=== PATIENT | male | born 1960 | race Caucasian/White ===

== ENCOUNTER 2017-04-26 13:14 | Inpatient (IN) ==
[2017-04-26] MEDS ORDERED: Ipratropium/Albuterol Neb 3 ML IH ONE (13:44)
--- NOTE | 2017-04-26 14:00 | Emergency Department Note ---
Disposition Clinical Impression: Acute urinary retention Congestive heart failure Qualifiers: Congestive heart failure type: unspecified Congestive heart failure chronicity : acute Qualified Code(s): I50.9 - Heart failure, unspecified Disposition: Admitted As Inpatient Condition: Fair Referrals: Marcelina Moseley MD [Primary Care Provider] - Forms: ED Satisfaction Letter Time of Disposition: 15:41 General Adult HPI - General Chief complaint: ED Shortness of Breath/Dyspnea Stated complaint: CHF Time Seen by Provider: 04/26/17 13:28 Source: patient, family Limitations: no limitations Nursing Notes Reviewed: Yes Vital Signs Reviewed: Yes - History of Present Illness HPI Narrative: History of present illness: 57-year-old male history of coronary artery disease with 4 stents. Signed out AMA yesterday from [facility] due to failed attempts at multiple insertions of Rogers catheter unsuccessfully. Patient does have an advanced BPH. He follows up with urology Dr. Colmenares here at [facility]. Patient was treated for pneumonia and CHF. Patient has been increasingly fatigued borderline lethargic and short of breath and listless. No fever or sputum. Denies chest pain. Comes in complaining of just feeling loss of energy and feeling like just urinate but cannot increased abdominal girth and swelling in his lower extremities. She denies headache photophobia neck stiffness skin rash contacts exotic food or recent travel Pain Scale: 0 - Related Data Home Medications Medication Instructions Recorded Confirmed Albuterol Sulfate [Proair Hfa] 2 puff IH DAILY PRN 11/29/16 11/29/16 Aspirin [Lo-Dose Aspirin EC] 81 mg PO DAILY 11/29/16 11/29/16 Atorvastatin [Lipitor] 40 mg PO HS 11/29/16 11/29/16 Carvedilol [Coreg] 6.25 mg PO BIDWM 11/29/16 11/29/16 Fluticasone Propionate Nasal 16 gm NS DAILY 11/29/16 11/29/16 [Flonase] Gabapentin [Gralise] 600 mg PO DAILY 11/29/16 11/29/16 Isosorbide MONOnitrate (24 HR) 60 mg PO DAILY 11/29/16 11/29/16 [Imdur] Lisinopril 2.5 mg PO DAILY 11/29/16 11/29/16 Loratadine [Allergy Relief] 10 mg PO DAILY 11/29/16 11/29/16 Mometasone/Formoterol [Dulera 100 13 gm IH BID 11/29/16 11/29/16 Mcg/5 Mcg Inhaler] Nitroglycerin [Nitrostat] 0.4 mg SL DAILY PRN 11/29/16 11/29/16 Omeprazole [PriLOSEC] 40 mg PO DAILY 11/29/16 11/29/16 OxyCODONE/APAP 10/325 [Percocet 1 each PO Q6HR PRN 11/29/16 11/29/16 10/325 MG] SitaGLIPtin [Januvia] 25 mg PO DAILY 11/29/16 11/29/16 Tamsulosin [Flomax] 0.4 mg PO DAILY 11/29/16 11/29/16 Tizanidine HCl [Zanaflex] 4 mg PO TID 11/29/16 11/29/16 Previous Rx's Medication Instructions Recorded levoFLOXacin [Levaquin] 500 mg PO DAILY #10 tablet 11/29/16 predniSONE [PredniSONE] 0 mg PO DAILY #11 tablet 11/29/16 Allergies Allergy/AdvReac Type Severity Reaction Status Date / Time No Known Allergies Allergy Verified 04/26/17 13:15 All systems ED: reviewed and negative except as stated. Constitutional: Reports: weakness Respiratory: Reports: cough, dyspnea Gastrointestinal: Reports: abdominal pain Past Medical History - Past Medical History Attestation: Yes The following information was validated with the patient. Source: patient Medical history: Reports: CHF, diabetes - Social History Smoking Status: Current every day smoker Smokeless Tobacco Status: No Alcohol use: Reports: occasionally Drug use: Reports: none Physical Exam - General Limitations: no limitations General appearance: alert, in no apparent distress - Head Head exam: atraumatic, normocephalic - Eye Eye exam: Present: normal appearance, PERRL - ENT ENT exam: normal exam, normal oropharynx - Neck Neck exam: Present: normal inspection, full ROM - Chest Chest inspection: Present: normal inspection, symmetric chest wall rise - Respiratory Respiratory exam: Present: prolonged expiratory phase, other (Bibasilar rales) - Cardiovascular Cardiovascular exam: Present: normal rhythm, tachycardia - Abdominal Exam Abdominal exam: Present: soft, Non-Tender, distention (Patient has increased abdominal girth likely secondary to edema/ no fluid wave) - Extremities Exam Extremities exam: Present: full ROM, pedal edema, other (2+ pitting edema to the proximal degroot). Absent: tenderness - Expanded Lower Extremity Exam Neurovascular/Tendon exam: Present: extremity cold to touch Gait: not tested/not observed - Back Exam Back exam: Present: normal inspection, full ROM - Neurological Exam Neurological exam: Present: oriented X3, CN II-XII intact, other (Patient is fatigued borderline somnolent) - Psychiatric Psychiatric exam: Present: normal affect, normal mood - Skin Skin exam: Present: warm, dry, intact, pallor Course - Reevaluation(s) Reevaluation #1: Patient left AMA bowel being treated for CHF exacerbation at an outside facility. Patient will get a bladder scan and then will have one attempt at a coude catheter Rogers catheter insertion. If that is unsuccessful we will consult urology Dr. Colmenares. Who knows the patient well. Plan is for catheter insertion administration of parenteral diuretics and admission to this facility which the patient and spouse present are both agreeable to. Providing 30 minutes of critical care services for this patient. Time: 14:36 Reevaluation #2: Patient and a bladder scan 379 mL, it was 250 yesterday. He is only gone to the bathroom very little. I told the patient and spouse present will have one attempt at a Coude catheter as well as unsuccessful we will consult Dr. Colmenares from urology to place a Rogers. Workup in progress Time: 14:47 Reevaluation #3: Attempted Rogers 1 with failure discussed the case with Dr. Colmenares neurologist facilities operations technician who agreed to come in and place a catheter. Patient and family of some form. Labs pending. Admission pending Time: 15:18 - Consultations Consultation #1: Work up is complete. Troponin within normal limits chest x-ray read by radiology is consistent for acute congestive heart failure. Dr. Colmenares has been consult for full catheter placement and will be arriving at the hospital shortly area discuss case with the hospitalist Dr. NOE, accepted patient for admission. Provided a total of 45 minutes of critical care services this patient Time: 15:40 Vital Signs Temperature 98.0 F 04/26/17 13:15 Pulse Rate 70 04/26/17 13:15 Respiratory Rate 15 04/26/17 13:15 Blood Pressure 163/89 04/26/17 13:15 O2 Sat by Pulse Oximetry 96 04/26/17 13:15 Temperature 98.0 F 04/26/17 13:15 Pulse Rate 70 04/26/17 13:15 Respiratory Rate 18 04/26/17 14:26 Blood Pressure 163/89 04/26/17 13:15 O2 Sat by Pulse Oximetry 86 04/26/17 14:26 Oxygen Delivery Oxygen Delivery Room Air Medical Decision Making - Lab Data Result diagrams: 04/26/17 14:08 04/26/17 14:08 Lab Results 04/26/17 04/26/17 04/26/17 Range/Units 14:08 14:08 14:08 WBC 15.9 H (4.3-11.1) K/mcL RBC 4.02 L (4.19-5.50) M/mcL Hgb 12.4 L (12.9-16.9) g/dL Hct 38.6 (37.5-50.1) % MCV 96.0 (83.0-100.0) fL MCH 30.8 (28.0-33.3) pg MCHC 32.1 (31.6-35.5) g/dL RDW 13.7 (11.5-14.5) % Plt Count 342 (140-400) K/mcL MPV 10.3 (9.4-12.4) fL Immature Gran % 1.3 (0-4) % Seg Neutrophils % 86.6 % Lymphocytes % 5.1 % Monocytes % 6.2 % Eosinophils % 0.6 % Basophils % 0.2 % Neutrophils # 13.8 H (1.6-8.9) K/mcL Lymphocytes # 0.8 (0.6-4.6) K/mcL Monocytes # 1.0 (0.0-1.3) K/mcL Eosinophils # 0.1 (0.0-0.6) K/mcL Basophils # 0.0 (0.0-0.2) K/mcL Immature Plt Fraction 2.4 (1.1-6.1) % Sodium 134 L (136-145) mEq/L Potassium 4.8 (3.5-5.1) mEq/L Chloride 104 (98-107) mEq/L Carbon Dioxide 21 L (23-29) mEq/L BUN 102 H (6-20) mg/dL Creatinine 4.13 H (0.70-1.30) mg/dL Est GFR ( Amer) 18 L (> 60) Est GFR (Non-Af Amer) 15 L (> 60) BUN/Creatinine Ratio 25 (6-26) Glucose 142 H (70-105) mg/dL Calculated Osmolality 312 H (280-300) Calcium 8.1 L (8.6-10.3) mg/dL Troponin I 0.03 (< 0.04) ng/mL
[2017-04-26 14:16] LABS: Basophils % 0.2 %; Eosinophils # 0.1 K/mcL (0.0-0.6); Eosinophils % 0.6 %; Hematocrit 38.6 % (37.5-50.1); Hemoglobin 12.4 g/dL (12.9-16.9); Immature Granulocytes % 1.3 % (0-4); Immature Platelets 2.4 % (1.1-6.1); Lymphocytes # 0.8 K/mcL (0.6-4.6); Lymphocytes % 5.1 %; Mean Corpuscular HGB Conc 32.1 g/dL (31.6-35.5); Mean Corpuscular Hemoglobin 30.8 pg (28.0-33.3); Mean Platelet Volume 10.3 fL (9.4-12.4); Monocytes % 6.2 %; Neutrophils # 13.8 K/mcL (1.6-8.9); Platelet Count 342 K/mcL (140-400); Red Blood Count 4.02 M/mcL (4.19-5.50); Red Cell Distribution Width 13.7 % (11.5-14.5); Segmented Neutrophils % 86.6 %
[2017-04-26 14:44] LABS: Calcium 8.1 mg/dL (8.6-10.3); Potassium 4.8 mEq/L (3.5-5.1)
[2017-04-26] MEDS ORDERED: Nitroglycerin 0.4 MG TAB.SUBL SL STA (15:04)
--- NOTE | 2017-04-26 17:28 | Urology Procedure Note ---
Date of Encounter: 04/26/17 Time of Encounter: 14:00 Procedures:Urology - Catheter Insertion (Urinary) Prophylactic antibiotics given: No Bladder Scan/Ultrasound used before catheterization: Yes (350) Estimated amount of urin (mLs): 800 Preparation: Povidone-Iodine Type of catheter inserted: 2 way Catheter Liberian Size: 16 Topical anesthesia used: Yes Urine Appearance: Clear Patient tolerated procedure: well Complications: none Additional comments: unable to place coude cath after lidocaine jelly insertion. able to pass zipwire and pass 16 vietnamese cath over the wire. some resistance indicating wide caliber stricture.
[2017-04-26] MEDS ORDERED: Gabapentin 400 MG CAPSULE PO PRN (18:43)
[2017-04-26] MEDS ORDERED: Dextrose Gel 15 GM/37.5 ML TUBE PO PRN ×2 (18:45)
[2017-04-26] MEDS ORDERED: *HR* Dextrose 50 % in Water (Syg) 50 ML SYRINGE IVP PRN (18:45)
[2017-04-26] MEDS ORDERED: D5% in Water 1,000 ML IVC PRN (18:45)
[2017-04-26] MEDS ORDERED: Naloxone 0.4 MG/ML INJ IVP PRN (18:45)
[2017-04-26] MEDS ORDERED: Furosemide 40 MG/4 ML VIAL IVP ONE (19:47)
[2017-04-26] MEDS ORDERED: Albuterol 2.5 MG/3 ML NEBULIZER IH PRN (19:51)
[2017-04-26] MEDS ORDERED: Levofloxacin 500 MG/100 ML 500 MG/100 ML BAG IVPB SCH (20:00)
--- NOTE | 2017-04-26 20:00 | Internal Med History&Physical ---
<Rodger Potter J - Last Filed: 04/26/17 19:55> Date of Encounter: 04/26/17 Time of Encounter: 19:55 Assessment and Plan (1) CAP (community acquired pneumonia) Current visit: Yes Status: Acute CXR from [facility] show LLL infiltrate concerning for PNA. This is no longer present on today's CXR He still has leukocytosis -Continue with renally dosed levaquin -Send urine Legionella, Mycoplasma, pneumococcal urine antigen - Blood Cx - Urine Legionella antigen - Antibiotics - CBCD, CMP in AM - Tylenol 650 mg PO q 4-6 hr PRN pain or fever - Home meds - check the list and restart accordingly - Heparin 5000 U SQ BID -Respiratory support per nasal cannula; titrate to maintain SPO2 >92% -CBC D and BMP in the morning Qualifiers: Laterality: left Lung location: lower lobe of lung Qualified Code(s): J18.1 - Lobar pneumonia, unspecified organism (2) Congestive heart failure Current visit: Yes Status: Acute Presents today with dyspnea, and increased swelling in BLE with 2+ pitting edema and weight gain -last successful TTE in 04/23/17 shows EF of 40-45% with left atrial dilation -CXR 04/26/17 concerning for congestive heart failure -BNP 682 -Vital signs stable - start Lasix 40 mg IV push once now -Strict intake and output monitoring -Daily weights -Continuous telemetry, continuous SPO2 monitoring -O2 per nasal cannula titrate to maintain SPO2 greater than 92% -CBCD, BMP in am Qualifiers: Congestive heart failure type: unspecified Congestive heart failure chronicity: acute Qualified Code(s): I50.9 - Heart failure, unspecified (3) Acute urinary retention Current visit: Yes Status: Acute Acute urinary retention secondary to advanced BPH Dr Colmenares was able to place barr catheter urology consult- day team to call Continue strict I&O's (4) DM (diabetes mellitus) Current visit: Yes Status: Acute LSSIC with AC/HS accuchecks and diabetic/cardiac diet Qualifiers: Diabetes mellitus type: type 2 Diabetes mellitus complication status: without complication Diabetes mellitus fdc insulin use: without rn long term care use Qualified Code(s): E11.9 - Type 2 diabetes mellitus without complications (5) CAD (coronary artery disease) Current visit: Yes Status: Acute Denies any chest pain Continue ASA, Statin, BB, and Imdur Qualifiers: Coronary Disease-Associated Artery/Lesion type: [place] artery [place] vs. transplanted heart: [place] heart Associated angina: without angina Qualified Code(s): I25.10 - Atherosclerotic heart disease of [place] coronary artery without angina pectoris (6) HTN (hypertension) Current visit: Yes Status: Acute H/o, BP currently stable Resume home antihypertensives Qualifiers: Hypertension type: essential hypertension Qualified Code(s): I10 - Essential (primary) hypertension (7) HLD (hyperlipidemia) Current visit: Yes Status: Acute Qualifiers: Hyperlipidemia type: unspecified Qualified Code(s): E78.5 - Hyperlipidemia , unspecified (8) DVT prophylaxis Current visit: Yes Status: Acute Internal Medicine - H&P: HPI Chief complaint: dyspnea, CHF, urinary retention Admitted From: Home Plans for Post Hospital Care: Home History of present illness: Mr. Tolentino is a 57 year old male with a PMH of CHF, DM, GERD, HTN, CAD x4 stents , HLD, and advanced BPH. He presented to [facility] today after signing out from [facility] AMA. The patient is somnolent and his is at the bedside to assist with H&P. She reports that he was being treated in [facility] for CHF and Pna. He began having urinary difficulty and after [address] a barr catheter he signed out AMA. Upon arrival to [facility] today he continues to be dyspneic, and somnolent. CXR concerning for CHF. Denies any fevers, chills, chest pain, N/V/ D. He admits to a non productive cough. Workup reveals an elevated Serum Cr of 4.13. He denies any prior h/o renal disease. Past Med Surg Social Fam HX - Past Medical History Medical history: CHF, diabetes - Social History Smoking Status: Current every day smoker Smokeless Tobacco Status: No Alcohol use: occasionally Drug use: none - Additional Family History Additional family history: noncontributory Internal Medicine - H&P: Meds Albuterol Sulfate [Proair Hfa] 2 puff IH Q4H PRN 11/29/16 [History] Aspirin [Lo-Dose Aspirin EC] 81 mg PO DAILY 11/29/16 [History] Carvedilol [Coreg] 6.25 mg PO BIDWM 11/29/16 [History] Fluticasone Propionate Nasal [Flonase] 50 mcg NS DAILY 11/29/16 [History] Isosorbide MONOnitrate (24 HR) [Imdur] 60 mg PO DAILY 11/29/16 [History] Lisinopril 2.5 mg PO DAILY 11/29/16 [History] Loratadine [Allergy Relief] 10 mg PO DAILY 11/29/16 [History] Mometasone/Formoterol [Dulera 100 Mcg/5 Mcg Inhaler] 2 puff IH BID 11/29/16 [ History] Nitroglycerin [Nitrostat] 0.4 mg SL Q5M PRN 11/29/16 [History] Omeprazole [PriLOSEC] 40 mg PO BID PRN 11/29/16 [History] OxyCODONE/APAP 10/325 [Percocet 10/325 MG] 1 each PO Q6HR PRN 11/29/16 [History] Tamsulosin [Flomax] 0.4 mg PO DAILY 11/29/16 [History] Tizanidine HCl [Zanaflex] 4 mg PO BID PRN 11/29/16 [History] Atorvastatin Calcium [Lipitor] 80 mg PO HS 04/26/17 [History] Finasteride [Proscar] 5 mg PO DAILY 04/26/17 [History] Gabapentin [Neurontin] 800 mg PO TID PRN 04/26/17 [History] Multivitamin [One Daily Essential] 1 each PO DAILY 04/26/17 [History] Sertraline [Zoloft] 100 mg PO DAILY 04/26/17 [History] glipiZIDE [Glipizide] 10 mg PO DAILY 04/26/17 [History] metFORMIN [Glucophage] 500 mg PO DAILY 04/26/17 [History] 3 Allergy/AdvReac Type Severity Reaction Status Date / Time ticagrelor [From Brilinta] Allergy See Verified 04/26/17 17:41 Comments All Systems PM: A 10-system review of systems was performed and is negative for pertinent findings except as documented above in the HPI. - Constitutional Constitutional: fatigue, lethargy, weight gain, no chills, no fever(s), no weakness, no weight loss - EENT Nose, mouth and throat: no dysphagia, no nasal discharge, no neck pain, no sore throat - Cardiovascular Cardiovascular ROS IM: dyspnea, dyspnea on exertion, edema, no chest pain, no diaphoresis, no irregular heart rhythm, no lightheadedness, no palpitations, no syncope - Respiratory Respiratory: cough (non productive), dyspnea on exertion, no hemoptysis, no pain on inspiration, no chest congestion, no pain with cough - Gastrointestinal Gastrointestinal: no abdominal pain, no diarrhea, no hematemesis, no hematochezia, no melena, no nausea, no vomiting - Genitourinary Genitourinary ROS male: difficulty urinating - Musculoskeletal Musculoskeletal ROS IM: no numbness, no tingling - Integumentary Integumentary IM: no rash, no unusual bruising - Neurological Neurological ROS: weakness - Constitutional Vitals: Temp Pulse Resp BP Pulse Ox 99.0 F 90 16 135/85 96 04/26/17 19:50 04/26/17 19:50 04/26/17 19:50 04/26/17 19:50 04/26/17 19:50 Exam: Somnolent, ill appearing 57 y.o male who appears stated age. He is alert to verbal stimulus and oriented to person, place, situation and date. - Head Head exam: Present: atraumatic, normocephalic - Neck Neck exam general surgery: Present: supple, trachea midline. Absent: lymphadenopathy - Respiratory Respiratory exam: Present: decreased breath sounds, rales, wheezes. Absent: accessory muscle use, chest wall tenderness, respiratory distress, rhonchi - Cardiovascular Cardiovascular exam: Present: RRR, +S1, +S2. Absent: diastolic murmur, gallop, rubs, systolic murmur - GI/Abdominal GI/Abdominal exam: Present: distended, soft. Absent: tenderness - Extremities Exam Extremities exam: Present: pedal edema (2+) - Neurological Exam Neurological exam: Present: alert (to veral stimuli but lethargic), oriented X3. Absent: facial droop, speech deficit - Skin Skin exam: Present: dry, intact Internal Med - H&P Results - Labs CBC & Chem 7: 04/26/17 14:08 04/26/17 14:08 - EKG Data -: EKG Interpreted by Myself EKG shows normal: sinus rhythm - EKG Data Prior EKG available for review: no - Diagnostic Studies Chest x-ray Status: image reviewed by me Additional comments: Findings suggestive of congestive heart failure <Bert Mejia - Last Filed: 04/26/17 20:38> Date of Encounter: 04/26/17 Internal Medicine - H&P: HPI History of present illness: Mr. Tolentino is a 57 year old male All Systems PM: A 10-system review of systems was performed and is negative for pertinent findings except as documented above in the HPI. - Constitutional Vitals: Temp Pulse Resp BP Pulse Ox 99.0 F 90 16 135/85 96 04/26/17 19:50 04/26/17 19:50 04/26/17 19:50 04/26/17 19:50 04/26/17 19:50 Internal Med - H&P Results - Labs CBC & Chem 7: 04/26/17 14:08 04/26/17 14:08 - Attending Attestation Mr Tolentino is a 57 yo male who presents as a transfer from [facility]. On thu, his photographic colorist at [facility] called patient to visit the ED in [facility]. He has trouble breathing that has been bad all week since thursday. Denies fever/ chills. Is on RA at baseline. He has a hx of DMII, COPD and CAD/[place] with stents, last in 2013 - currently on ASA alone. At [facility], he was given antibiotics for CXR on 04/22/17 showing RLL PNA. He later developed decrease UOP, ROD, urinary retention, swelling of his body over the next few days. They had difficulty placing the barr at [facility] last night. Given clinical worsening, he was transfered here. TTE in [facility] 04/23/17 with global hypokinesis of LV, LVEF 40-45% Cr 2. 6 - 04/22/17 Cr 0.82 - 02/15/17 General - AAO x 3 but sleepy Eyes - CAL. Eye lids intact. No scleral icterus Heart - Sinus. RRR. S1 and S2 present. No added HS/murmurs appreciated. No elevated JVD appreciated. Lung - Adequate air entry b/l, Diffuse crackles. Scant wheezes appreciated GI - Soft, non-tender. No hepatosplenomegaly/ascites. BS+ - No CVA/suprapubic tenderness or palpable bladder distension Skin - +2 b/l LE edema XR/XR chest 2V IMPRESSION: 1. Findings typical of congestive heart failure. 2. Cardiomegaly. 3. Calcific atherosclerosis aorta. A/P CHF Unable to r/o PNA - renally dose levaquin as empiric therapy, jorge, meliton serologies/cx - trial dose of lasix ROD - uncertain etiology, ? component of post-renal - consult renal - renal US, urine lytes - 1 x lasix trial - barr COPD DMII - ISS
[2017-04-26 20:28] LABS: Bilirubin,Urine Negative (Negative); Blood,Urine Large (Negative); Clarity,Urine Turbid (Clear); Color,Urine Yellow (Yellow); Glucose,Urine (UA) Normal (Normal); Ketones,Urine Negative (Negative); Leukocyte Esterase,Urine Negative (Negative); Nitrite,Urine Negative (Negative); Protein,Urine >=300 mg/dL (Neg-Trace); Specific Gravity,Urine 1.021 (1.010-1.025); Urobilinogen,Urine Normal (Normal)
[2017-04-26 20:30] LABS: Hyaline Casts,Urine None Seen per lpf (None-Few); RBC,Urine TNTC per hpf (0-3); Squamous Epithelial Cell,Urine Many per lpf (None-Few)
[2017-04-26] MEDS: Ipratropium/Albuterol Neb 3 ML IH SCH (20:35)
[2017-04-26 20:39] LABS: Bacteria,Urine Moderate per hpf (None-Few)
[2017-04-26 20:51] LABS: ABG Base Excess -4 mEq/L (-2 to 3); ABG HCO3 23 mEq/L (21-27); ABG Oxygen Saturation 96 % (95-98); ABG PCO2 49 mmHg (35-45); ABG PH 7.28 pH Units (7.32-7.45); ABG PO2 94 mmHg (85-104); ABG TCO2 24 mEq/L (20-26)
[2017-04-26] MEDS ORDERED: Levofloxacin 250 MG/50 ML 250 MG/50 ML BAG IVPB SCH (21:00)
[2017-04-26] MEDS: Insulin LISPRO 300 UNITS/3 ML VIAL SQ SCH (22:18)
[2017-04-27] MEDS: Ipratropium/Albuterol Neb 3 ML IH SCH ×6 (00:03→22:23)
[2017-04-27 04:17] LABS: Basophils % 0.2 %; Eosinophils # 0.1 K/mcL (0.0-0.6); Eosinophils % 0.9 %; Immature Granulocytes % 0.9 % (0-4); Lymphocytes # 0.9 K/mcL (0.6-4.6); Lymphocytes % 7.3 %; Mean Corpuscular HGB Conc 34.4 g/dL (31.6-35.5); Mean Corpuscular Hemoglobin 33.4 pg (28.0-33.3); Mean Corpuscular Volume 97.3 fL (83.0-100.0); Mean Platelet Volume 10.8 fL (9.4-12.4); Monocytes # 1.1 K/mcL (0.0-1.3); Monocytes % 8.5 %; Neutrophils # 10.6 K/mcL (1.6-8.9); Platelet Count 324 K/mcL (140-400); Red Blood Count 3.29 M/mcL (4.19-5.50); Red Cell Distribution Width 13.7 % (11.5-14.5); Segmented Neutrophils % 82.2 %
[2017-04-27 05:16] LABS: Albumin 1.9 g/dL (3.5-5.7); Albumin/Globulin Ratio 0.8 (1.1-2.2); Bilirubin,Total 0.2 mg/dL (0.3-1.0); Calcium 7.8 mg/dL (8.6-10.3); Globulin 2.5 g/dL (2.4-3.5); Potassium 4.8 mEq/L (3.5-5.1); Total Protein 4.4 g/dL (6.4-8.9)
--- NOTE | 2017-04-27 08:17 | Nephrology Consult Note ---
Date of Encounter: 04/27/17 Time of Encounter: 08:14 Assessment and Plan (1) Acute kidney failure, unspecified Current Visit: Yes Status: Acute The patient has acute kidney injury in the setting would appears to be urinary retention. He does have a past history of an enlarged prostate and status post treatment with greenlight laser back in 2011. He also has associated proteinuria which may be related to underlying diabetic renal disease. Patient will require a CT scan of the abdomen and pelvis to further evaluate the urinary tract. Also he will undergo evaluation for the proteinuria. His renal function is starting to improve. We will continue to monitor his renal function and also monitor for postobstructive diuresis. Qualifiers: Acute renal failure type: unspecified Qualified Code(s): N17.9 - Acute kidney failure, unspecified (2) Acute urinary retention Current Visit: Yes Status: Acute (3) Proteinuria, unspecified Current Visit: Yes Status: Acute Qualifiers: Proteinuria type: unspecified Qualified Code(s): R80.9 - Proteinuria, unspecified (4) CAD (coronary artery disease), [place] coronary artery Current Visit: Yes Status: Acute Qualifiers: [place] vs. transplanted heart: [place] heart Associated angina: without angina Qualified Code(s): I25.10 - Atherosclerotic heart disease of [place] coronary artery without angina pectoris History of Present Illness - History of Present Illness This is a 57-year-old male who was admitted through the emergency room with complaints of shortness of breath. He was noted to have acute kidney injury and was also having difficulty in emptying his bladder. Patient was noted to have a serum creatinine of 4.13. Creatinine back in October 2016 was 0.89. Most of the history is obtained from the patient's . The reports that earlier in the week the patient was experiencing some shortness of breath. She eventually went to see the patient's highway construction inspector. According to the the highway construction inspector said that the patient's lungs were tight and said he should go to the emergency room. The patient was subsequently admitted to [facility]. He was diagnosed with congestive heart failure and pneumonia. He was having difficulty emptying his bladder. They were unsuccessful in placing a Rogers catheter. So the patient left [place] presented to [place]. The patient does have a history of BPH and underwent greenlight laser back in 2011. Recently the reports that the patient states that his urine stream has been slow. Otherwise he denies any difficulty emptying his bladder. He does not have significant nocturia. He has not had any hematuria, renal calculi, or history of recurrent urinary tract infections. Dr. Colmenares placed a Rogers catheter with some difficulty. Currently the catheter is draining. Urine output appears to be increasing and the patient's creatinine has come down to 3.86. Urinalysis does show significant proteinuria as well as some hematuria and pyuria. The patient does have a history of coronary artery disease, myocardial infarction, and for coronary stents. He also continues to smoke. Patient does have a history of diabetes for 10-12 years. It is unclear if he has diabetic retinopathy. Past Med Surg Social Fam HX - Past Medical History Medical history: CHF, diabetes - Social History Smoking Status: Current every day smoker Smokeless Tobacco Status: No Alcohol use: occasionally Drug use: none Medications and Allergies Albuterol Sulfate [Proair Hfa] 2 puff IH Q4H PRN 11/29/16 [History] Aspirin [Lo-Dose Aspirin EC] 81 mg PO DAILY 11/29/16 [History] Carvedilol [Coreg] 6.25 mg PO BIDWM 11/29/16 [History] Fluticasone Propionate Nasal [Flonase] 50 mcg NS DAILY 11/29/16 [History] Isosorbide MONOnitrate (24 HR) [Imdur] 60 mg PO DAILY 11/29/16 [History] Lisinopril 2.5 mg PO DAILY 11/29/16 [History] Loratadine [Allergy Relief] 10 mg PO DAILY 11/29/16 [History] Mometasone/Formoterol [Dulera 100 Mcg/5 Mcg Inhaler] 2 puff IH BID 11/29/16 [ History] Nitroglycerin [Nitrostat] 0.4 mg SL Q5M PRN 11/29/16 [History] Omeprazole [PriLOSEC] 40 mg PO BID PRN 11/29/16 [History] OxyCODONE/APAP 10/325 [Percocet 10/325 MG] 1 each PO Q6HR PRN 11/29/16 [History] Tamsulosin [Flomax] 0.4 mg PO DAILY 11/29/16 [History] Tizanidine HCl [Zanaflex] 4 mg PO BID PRN 11/29/16 [History] Atorvastatin Calcium [Lipitor] 80 mg PO HS 04/26/17 [History] Finasteride [Proscar] 5 mg PO DAILY 04/26/17 [History] Gabapentin [Neurontin] 800 mg PO TID PRN 04/26/17 [History] Multivitamin [One Daily Essential] 1 each PO DAILY 04/26/17 [History] Sertraline [Zoloft] 100 mg PO DAILY 04/26/17 [History] glipiZIDE [Glipizide] 10 mg PO DAILY 04/26/17 [History] metFORMIN [Glucophage] 500 mg PO DAILY 04/26/17 [History] 3 Allergy/AdvReac Type Severity Reaction Status Date / Time ticagrelor [From Brilinta] Allergy See Verified 04/26/17 17:41 Comments Review of Systems Constitutional: as per HPI Eyes: bilateral: blurred vision (patient denies), diplopia (patient denies) Nose, mouth and throat: no dizziness, no headache(s) Cardiovascular: dyspnea, dyspnea on exertion, edema, leg edema, no chest pain, no palpitations Respiratory: as per HPI, cough, dyspnea, dyspnea on exertion Gastrointestinal: no abdominal pain, no change in bowel habits Genitourinary Male: as per HPI, difficulty urinating Musculoskeletal: as per HPI Integumentary: no hirsutism, no striae Neurological: as per HPI Psychiatric: no depression, no difficulty concentrating Endocrine: as per HPI Hematologic/Lymphatic: no easy bruising, no lymphadenopathy Exam - Vital Signs Vital signs: Initial Vital Signs Temp Pulse Resp BP Pulse Ox 98.0 F 70 15 163/89 96 04/26/17 13:15 04/26/17 13:15 04/26/17 13:15 04/26/17 13:15 04/26/17 13:15 Vital Signs - Last 8 Hours Temp Pulse Resp BP Pulse Ox 04/27/17 07:58 17 95 04/27/17 06:44 99.7 F H 102 16 161/88 92 04/27/17 04:56 98.0 F 96 18 150/75 90 Intake and Output 04/26/17 04/27/17 04/27/17 23:59 07:59 15:59 Intake Total 50 / 50 Output Total 750 / 750 Balance 50 / 50 -750 / -750 Intake: IV Fluids 50 / 50 Levaquin Premix 250 MG/50 ML 50 / 50 250 mg In 50 ml @ 50 mls/hr IVPB Q48H [facility] Rx#:[id number] Output: Urine 750 / 750 Other: Weight 77.519 kg Blood Glucose* 105 - General Appearance Exam: Patient is resting comfortably in bed. He is in no acute distress. Blood pressure 161/88. Neck is supple. Lungs coarse breath sounds somewhat diminished. Heart regular rate and rhythm with a 2/6 ejection murmur. Abdomen is soft. Bowel sounds are present. No guarding or masses organomegaly. Lower extremity show 1+ lower extremity edema. A Rogers catheter is in place. Results - Lab Results 04/27/17 03:04 04/27/17 03:04 Most recent lab results ABG pH 7.28 pH Units (7.32-7.45) L 04/26/17 20:47 ABG pCO2 49 mmHg (35-45) H 04/26/17 20:47 ABG pO2 94 mmHg (85-104) 04/26/17 20:47 ABG HCO3 23 mEq/L (21-27) 04/26/17 20:47 ABG O2 Saturation 96 % (95-98) 04/26/17 20:47 Calcium 7.8 mg/dL (8.6-10.3) L 04/27/17 03:04 Consult Discharge Plan - Plan Referrals: Marcelina Moseley MD [Primary Care Provider] -
[2017-04-27] MEDS: Loratadine 10 MG TABLET PO SCH (08:44)
[2017-04-27] MEDS: Aspirin Enteric Coated 81 MG Tablet PO SCH (08:44)
[2017-04-27] MEDS: Finasteride 5 MG TABLET PO SCH (08:44)
[2017-04-27] MEDS: Isosorbide MONOnitrate (24 HR) 60 MG TAB.ER.24H PO SCH (08:45)
[2017-04-27] MEDS: Insulin LISPRO 300 UNITS/3 ML VIAL SQ SCH ×4 (08:50→21:07)
[2017-04-27] MEDS: Fluticasone Propionate Nasal 50 MCG/SPRAY BOTTLE NS SCH (10:40)
[2017-04-27] MEDS: Budesonide/Formoterol 80/4.5 MDI IH SCH ×2 (11:03→22:23)
[2017-04-27 11:17] LABS: Hepatitis A Antibody IgM Nonreactive (Nonreactive); Hepatitis B Core IgM Nonreactive (Nonreactive); Hepatitis B Surface Antigen Nonreactive (Nonreactive); Hepatitis C Virus Antibody Nonreactive (Nonreactive)
--- NOTE | 2017-04-27 11:23 | Internal Med Progress Note ---
Date of Encounter: 04/27/17 Time of Encounter: 08:45 - Assessment and plan (1) Acute kidney failure, unspecified Current Visit: Yes Status: Suspected Assessment and plan: Due to acute urinary retention. Suspect ATN. Nephrology following. The ultrasound ordered. Renal function is improving. BUN remains elevated at 109. Creatinine is improving. Good urine output. High risk for complications. Qualifiers: Acute renal failure type: with acute tubular necrosis Qualified Code(s): N17.0 - Acute kidney failure with tubular necrosis (2) Acute urinary retention Current Visit: Yes Status: Acute Assessment and plan: Rogers catheter has been placed. Having good urine output now. We will continue to follow. Patient will most likely be discharged with Rogers catheter in place and will follow up outpatient with urology. Continue Flomax. (3) Congestive heart failure Current Visit: Yes Status: Acute Assessment and plan: Received Lasix yesterday. Patient has had good urine output. Will check 2-D echocardiogram. Qualifiers: Congestive heart failure type: unspecified Congestive heart failure chronicity: acute Qualified Code(s): I50.9 - Heart failure, unspecified (4) CAP (community acquired pneumonia) Current Visit: Yes Status: Acute Assessment and plan: On Levaquin. Continue for now. We will repeat chest x-ray tomorrow. Check pro calcitonin. Qualifiers: Laterality: left Lung location: lower lobe of lung Qualified Code(s): J18.1 - Lobar pneumonia, unspecified organism (5) DM (diabetes mellitus) Current Visit: Yes Status: Chronic Assessment and plan: Well-controlled. 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 Blood pressure is currently elevated. We will adjust antihypertensive regimen. Qualifiers: Hypertension type: essential hypertension Qualified Code(s): I10 - Essential (primary) hypertension (7) HLD (hyperlipidemia) Current Visit: Yes Status: Chronic Assessment and plan: Continue Lipitor Qualifiers: Hyperlipidemia type: mixed hyperlipidemia Qualified Code(s): E78.2 - Mixed hyperlipidemia (8) DVT prophylaxis Current Visit: Yes Status: Acute Assessment and plan: Will start subcutaneous heparin (9) CAD (coronary artery disease), [place] coronary artery Current Visit: Yes Status: Chronic Assessment and plan: No chest pain at this time. Continue aspirin, statin, beta ricco. Qualifiers: [place] vs. transplanted heart: [place] heart Associated angina: without angina Qualified Code(s): I25.10 - Atherosclerotic heart disease of [place] coronary artery without angina pectoris (10) Abdominal pain Current Visit: Yes Status: Acute Assessment and plan: Will check lipase level. Could be related to gastritis. Will continue omeprazole. Qualifiers: Abdominal location: epigastric Qualified Code(s): R10.13 - Epigastric pain - Subjective Interval history: Patient is currently very drowsy at this time. Does awake easily and answered questions appropriately. Remains disoriented. Denies any chest pain or shortness of breath. - Constitutional Vitals: Temp Pulse Resp BP Pulse Ox 99.6 F 84 16 151/76 94 04/27/17 10:49 04/27/17 10:49 04/27/17 10:49 04/27/17 10:49 04/27/17 10:49 General appearance: Present: cooperative, A&O X 1, answers questions appropriately Exam: Somnolent but awakes easily - Respiratory Respiratory exam: Present: CTAB. Absent: accessory muscle use, rales, rhonchi, wheezes - Cardiovascular Cardiovascular exam: Present: RRR, +S1, +S2. Absent: diastolic murmur, gallop, rubs, systolic murmur - GI/Abdominal GI/Abdominal exam: Present: normal bowel sounds, soft, tenderness (Epigastric), no peritoneal signs. Absent: distended - Extremities Exam Extremities exam: Present: warm, radial pulses palpable and symmetrical. Absent : calf tenderness, cyanotic, pedal edema Internal Medicine: Result - Labs CBC & Chem 7: 04/27/17 03:04 04/27/17 03:04 Labs: Short CBC 04/27/17 Range/Units 03:04 WBC 12.9 H (4.3-11.1) K/mcL Hgb 11.0 L (12.9-16.9) g/dL Hct 32.0 L (37.5-50.1) % Plt Count 324 (140-400) K/mcL Neutrophils # 10.6 H (1.6-8.9) K/mcL BMP 04/27/17 03:04 Sodium 139 Potassium 4.8 Chloride 107 Carbon Dioxide 22 L BUN 109 H Creatinine 3.86 H Glucose 100 Calcium 7.8 L Cardiac Enzymes 04/26/17 04/27/17 Range/Units 20:36 03:04 Troponin I 0.05 H* 0.03 (< 0.04) ng/mL Liver Function 04/27/17 Range/Units 03:04 Total Bilirubin 0.2 L (0.3-1.0) mg/dL AST 17 (13-39) Units/L ALT 17 (7-52) Units/L Alkaline Phosphatase 120 H (34-104) Units/L Albumin 1.9 L (3.5-5.7) g/dL - ABG Interpretation ABG results: ABG ABG pH 7.28 pH Units (7.32-7.45) L 04/26/17 20:47 ABG pCO2 49 mmHg (35-45) H 04/26/17 20:47 ABG pO2 94 mmHg (85-104) 04/26/17 20:47 ABG O2 Saturation 96 % (95-98) 04/26/17 20:47 Consult Discharge Plan - Plan Referrals: Marcelina Moseley MD [Primary Care Provider] -
--- NOTE | 2017-04-27 13:50 | Electrocardiograph Report ---
[place] [address] Test Date: 2017-04-26 Pat Name: Justin Tolentino Department: 103 Room: 2A12 Gender: M Admissions Officer: TIFFANIE : 1960 Requested By: Felipe Rosales Order Number: [id number] Reading MD: Luzma Victor Measurements Intervals [place] Rate: 91 P: 68 OR: 137 QRS: -31 QRSD: 121 T: 73 QT: 350 QTc: 399 Interpretive Statements SINUS RHYTHM POSSIBLE LEFT ATRIAL ENLARGEMENT [-0.1mV P WAVE IN V1/V2] MODERATE INTRAVENTRICULAR CONDUCTION DELAY [110+ ms QRS DURATION] Electronically Signed On 04-27-2017 13:48:29 EST by Luzma Victor
[2017-04-27 16:29] LABS: Protein/Creatinine Ratio,Urine 3.15 mg/mg (0.00-0.20)
[2017-04-27] MEDS: *HR* Heparin 5,000 UNIT/ML VIAL SQ SCH (16:44)
[2017-04-27] MEDS ORDERED: Levofloxacin 500 MG/100 ML 500 MG/100 ML BAG IVPB SCH (21:00)
[2017-04-28] MEDS: Ipratropium/Albuterol Neb 3 ML IH SCH ×2 (03:09→10:08)
[2017-04-28 05:02] LABS: Albumin 1.9 g/dL (3.5-5.7); Albumin/Globulin Ratio 0.7 (1.1-2.2); Bilirubin,Total 0.3 mg/dL (0.3-1.0); Calcium 8.1 mg/dL (8.6-10.3); Globulin 2.6 g/dL (2.4-3.5); Potassium 5.3 mEq/L (3.5-5.1); Total Protein 4.5 g/dL (6.4-8.9)
--- NOTE | 2017-04-28 08:10 | Nephrology Progress Note ---
Date of Encounter: 04/28/17 Time of Encounter: 08:08 - Assessment and Plan (1) Acute kidney failure, unspecified Current Visit: Yes Status: Suspected Patient has a clinical picture of acute kidney injury in the setting of a large prostate and urinary retention. Serum creatinine had improved yesterday compared to the previous day. Today it is a bit worse. This may be related to poor oral intake. I am going to start him on a maintenance IV and hopefully the enhanced hydration will lead to some improvement in his renal function. He does have significant proteinuria. He may have underlying diabetic renal disease. Qualifiers: Acute renal failure type: with acute tubular necrosis Qualified Code(s): N17.0 - Acute kidney failure with tubular necrosis (2) Acute urinary retention Current Visit: Yes Status: Acute (3) Proteinuria, unspecified Current Visit: Yes Status: Acute Qualifiers: Proteinuria type: unspecified Qualified Code(s): R80.9 - Proteinuria, unspecified (4) CAD (coronary artery disease), [place] coronary artery Current Visit: Yes Status: Chronic Qualifiers: [place] vs. transplanted heart: [place] heart Associated angina: without angina Qualified Code(s): I25.10 - Atherosclerotic heart disease of [place] coronary artery without angina pectoris Subjective Interval history: Patient continues to remain sleepy. According to the patient's he was in bed all day yesterday and did not eat or drink anything. Serum creatinine is increased from 3.86 yesterday up to 4.01 today. Urine output is recorded as 1000 mL. Intake is recorded is 0. Vital signs are stable. Spot urine protein to creatinine ratio is elevated at 3.15. Renal ultrasound shows a larger right kidney. There is no hydronephrosis. Echogenicity is normal. There are several renal cysts. Objective - Vital Signs Vital signs: Vital Signs Temp Pulse Resp BP Pulse Ox 04/28/17 06:58 98 F 90 17 145/74 94 04/28/17 04:10 97.4 F L 89 16 133/71 95 04/28/17 00:46 97.2 F L 87 16 131/67 92 04/27/17 22:24 14 92 04/27/17 21:04 97.9 F 87 18 139/75 94 04/27/17 16:10 16 90 04/27/17 11:03 16 94 04/27/17 10:49 99.6 F 84 16 151/76 94 Intake and Output 04/27/17 04/28/17 04/28/17 23:59 07:59 15:59 Other: # Bowel Movements 2 Blood Glucose* 119 140 - General Appearance Exam: Patient is sleeping but he will awaken and answer questions. He denies any complaints. Lungs essentially clear to auscultation. Heart regular rate and rhythm. Abdomen is benign. There is no lower extremity swelling. A Rogers catheter is in place draining blood-tinged urine. - Lab 04/27/17 03:04 04/28/17 04:33 Most recent lab results ABG pH 7.28 pH Units (7.32-7.45) L 04/26/17 20:47 ABG pCO2 49 mmHg (35-45) H 04/26/17 20:47 ABG pO2 94 mmHg (85-104) 04/26/17 20:47 ABG HCO3 23 mEq/L (21-27) 04/26/17 20:47 ABG O2 Saturation 96 % (95-98) 04/26/17 20:47 Calcium 8.1 mg/dL (8.6-10.3) L 04/28/17 04:33 Urine Creatinine 150 mg/dL 04/27/17 13:17 Urine Total Protein 473 mg/dL 04/27/17 13:17 Consult Discharge Plan - Plan Referrals: Marcelina Moseley MD [Primary Care Provider] -
[2017-04-28] MEDS ORDERED: 0.9 % Sodium Chloride 1,000 ML IVC SCH (08:15)
[2017-04-28] MEDS: *HR* Heparin 5,000 UNIT/ML VIAL SQ SCH ×2 (09:30→17:14)
[2017-04-28] MEDS: Isosorbide MONOnitrate (24 HR) 60 MG TAB.ER.24H PO SCH (09:31)
[2017-04-28] MEDS: Finasteride 5 MG TABLET PO SCH (09:31)
[2017-04-28] MEDS: Insulin LISPRO 300 UNITS/3 ML VIAL SQ SCH ×4 (09:31→21:53)
[2017-04-28] MEDS: Loratadine 10 MG TABLET PO SCH (09:31)
[2017-04-28] MEDS: Aspirin Enteric Coated 81 MG Tablet PO SCH (09:31)
[2017-04-28] MEDS: Fluticasone Propionate Nasal 50 MCG/SPRAY BOTTLE NS SCH (09:32)
--- NOTE | 2017-04-28 09:36 | Internal Med Progress Note ---
Date of Encounter: 04/28/17 Time of Encounter: 09:34 - Assessment and plan (1) Congestive heart failure Current Visit: Yes Status: Acute Assessment and plan: Diastolic ECHO note, normal EF, no valvular abnormalities, mild LVDD Renal function is worsening, will hold lasix Has been given gentle hydration by renal, agree, continue, monitor resp status Qualifiers: Congestive heart failure type: unspecified Congestive heart failure chronicity: acute Qualified Code(s): I50.9 - Heart failure, unspecified (2) Acute urinary retention Current Visit: Yes Status: Acute Assessment and plan: Rogers catheter has been placed. Having good urine output now. We will continue to follow. Patient will most likely be discharged with Rogers catheter in place and will follow up outpatient with urology. Continue Flomax. (3) CAP (community acquired pneumonia) Current Visit: Yes Status: Acute Assessment and plan: Continue levaquin q48h Cultures negative so far Admiting CXR was suggestive of CHF and not pneumonia Will repeat CXR today Qualifiers: Laterality: left Lung location: lower lobe of lung Qualified Code(s): J18.1 - Lobar pneumonia, unspecified organism (4) DM (diabetes mellitus) Current Visit: Yes Status: Chronic Assessment and plan: Well-controlled. Continue current insulin regimen Qualifiers: Diabetes mellitus type: type 2 Diabetes mellitus complication status: without complication Diabetes mellitus fci insulin use: without fci use Qualified Code(s): E11.9 - Type 2 diabetes mellitus without complications (5) CAD (coronary artery disease) Current Visit: Yes Status: Chronic Assessment and plan: Chronic, no chest pain, continue current meds Qualifiers: Coronary Disease-Associated Artery/Lesion type: [place] artery [place] vs. transplanted heart: [place] heart Associated angina: without angina Qualified Code(s): I25.10 - Atherosclerotic heart disease of [place] coronary artery without angina pectoris (6) HTN (hypertension) Current Visit: Yes Status: Chronic Assessment and plan: Controlled, continue current meds Qualifiers: Hypertension type: essential hypertension Qualified Code(s): I10 - Essential (primary) hypertension (7) HLD (hyperlipidemia) Current Visit: Yes Status: Chronic Assessment and plan: Continue Lipitor Qualifiers: Hyperlipidemia type: mixed hyperlipidemia Qualified Code(s): E78.2 - Mixed hyperlipidemia (8) DVT prophylaxis Current Visit: Yes Status: Acute Assessment and plan: Continue subcutaneous heparin (9) Proteinuria, unspecified Current Visit: Yes Status: Acute Assessment and plan: Follow urine collection Renal following Qualifiers: Proteinuria type: unspecified Qualified Code(s): R80.9 - Proteinuria, unspecified (10) Hyperkalemia Current Visit: Yes Status: Acute Assessment and plan: Kayexalate ordered, repeat Chem pm - Subjective Interval history: Seen and evaluated at bedside 57 M admitted and being managed for ROD secodnary to acute urinary retention, CHFpEF exacerbation, Pneumonia He has a PMH of DM, HTN, HLF, CAD Renal is following Poor oral intake and somnolence persists, renal function is worse today His is at the bedside at time of review Patient states "I just dont feel good", per he was able to take a few spoons of his meal this morning ECHO noted for Mild LVDD, Renal USS noted for bilateral renal cysts, ascites urine legionella and strep Ag are negative. - Constitutional Vitals: Temp Pulse Resp BP Pulse Ox 98 F 90 17 145/74 94 04/28/17 06:58 04/28/17 06:58 04/28/17 06:58 04/28/17 06:58 04/28/17 06:58 General appearance: Present: cooperative, A&O X 2, answers questions appropriately - Head Head exam: Present: atraumatic, normocephalic - Eye Eye exam: Present: PERRL, conjuntiva pink, sclera anicteric Pupils: Present: PERRL - Neck Neck exam general surgery: Present: supple, trachea midline. Absent: lymphadenopathy - Respiratory Respiratory exam: Present: rhonchi - Cardiovascular Cardiovascular exam: Present: RRR, +S1, +S2. Absent: diastolic murmur, gallop, rubs, systolic murmur - GI/Abdominal GI/Abdominal exam: Present: normal bowel sounds, soft, no peritoneal signs. Absent: distended, tenderness - Additional comments: Rogers cath draining bloody urine - Extremities Exam Extremities exam: Present: warm, radial pulses palpable and symmetrical. Absent : calf tenderness, cyanotic, pedal edema - Neurological Exam Neurological exam: Present: alert, CN II-XII intact, oriented X3, no focal deficits. Absent: pronater drift, facial droop, speech deficit - Skin Skin exam: Present: dry, intact Internal Medicine: Result - Labs CBC & Chem 7: 04/27/17 03:04 04/28/17 04:33 Labs: BMP 04/28/17 04:33 Sodium 137 Potassium 5.3 H Chloride 107 Carbon Dioxide 20 L BUN 121 H Creatinine 4.01 H Glucose 129 H Calcium 8.1 L Liver Function 04/28/17 Range/Units 04:33 Total Bilirubin 0.3 (0.3-1.0) mg/dL AST 22 (13-39) Units/L ALT 17 (7-52) Units/L Alkaline Phosphatase 115 H (34-104) Units/L Albumin 1.9 L (3.5-5.7) g/dL - ABG Interpretation ABG results: ABG ABG pH 7.28 pH Units (7.32-7.45) L 04/26/17 20:47 ABG pCO2 49 mmHg (35-45) H 04/26/17 20:47 ABG pO2 94 mmHg (85-104) 04/26/17 20:47 ABG O2 Saturation 96 % (95-98) 04/26/17 20:47 - Impressions Impressions Echocardiogram 04/27/17 11:23 Impressions: LVEF 45-50%. Mild left ventricular diastolic dysfunction. Normal right ventricular structure and function. Mild-moderate mitral regurgitation. No pulmonary hypertension. Left Ventricular Wall Motion: Rest Echo Findings The mid inferior, basal inferior, mid inferior lateral and basal inferior lateral [place] were hypokinetic. All other wall segments showed normal motion. Findings: Study Quality * Technically adequate exam. ECG Findings * Normal sinus rhythm. Left Ventricle * LVEF 45-50%. * LV size upper limits of normal. * Mild left ventricular diastolic dysfunction. Right Ventricle * Normal right ventricular structure and function. Left Atrium * Normal left atrial size. Right Atrium * Normal right atrial size. Aortic Valve * No aortic regurgitation. * Aortic valve not well visualized. * No aortic stenosis. Mitral Valve * Normal mitral valve structure. * No mitral stenosis. * Mild-moderate mitral regurgitation. Tricuspid Valve * Tricuspid valve not well visualized. * Trace tricuspid regurgitation. * Estimated RA pressure is 3 mmHg. * Estimated RVSP is 13 mmHg. * No pulmonary hypertension. Pulmonic Valve * Pulmonic valve is not well visualized. * No pulmonic stenosis. * No pulmonic regurgitation. Pulmonary Artery * Pulmonary artery not well visualized. Aorta * Normally sized aortic root. * Ascending aorta is not well visualized. Pericardium * There is no pericardial effusion present. Interatrial Septum * No evidence of PFO by color Doppler. IVC * Normal IVC dimensions and inspiratory collapse. Retroperitoneum Ultrasound 04/27/17 15:30 IMPRESSION: Bilateral renal cysts. Otherwise unremarkable bilateral renal ultrasound. Incomplete evaluation of the urinary bladder due to lack of distention with Rogers in place. Moderate prostatomegaly. Small amount of ascites. D/ / 04/27/2017 16:39:34 Louis Katz MD / Misa Coy Interpreting Provider: Louis Katz MD Consult Discharge Plan - Plan Referrals: Marcelina Moseley MD [Primary Care Provider] - 05/04/17 2:45 pm (Please follow up a sschedule)
[2017-04-28] MEDS: Budesonide/Formoterol 80/4.5 MDI IH SCH ×2 (10:08→22:50)
[2017-04-28] MEDS ORDERED: Ondansetron 4 MG/2 ML VIAL IVP PRN (18:57)
[2017-04-29] MEDS ORDERED: *HR* OxyCODONE/APAP 10/325 TABLET PO PRN (04:35)
[2017-04-29] MEDS: *HR* Heparin 5,000 UNIT/ML VIAL SQ SCH ×2 (05:01→17:01)
[2017-04-29 06:15] LABS: Basophils % 0.1 %; Eosinophils % 0.1 %; Hematocrit 31.4 % (37.5-50.1); Hemoglobin 10.8 g/dL (12.9-16.9); Immature Granulocytes % 0.8 % (0-4); Lymphocytes # 0.8 K/mcL (0.6-4.6); Lymphocytes % 5.3 %; Mean Corpuscular HGB Conc 34.4 g/dL (31.6-35.5); Mean Platelet Volume 10.6 fL (9.4-12.4); Monocytes # 1.2 K/mcL (0.0-1.3); Monocytes % 8.5 %; Neutrophils # 12.4 K/mcL (1.6-8.9); Platelet Count 276 K/mcL (140-400); Red Blood Count 3.27 M/mcL (4.19-5.50); Red Cell Distribution Width 13.9 % (11.5-14.5); Segmented Neutrophils % 85.2 %
[2017-04-29 06:35] LABS: Albumin 1.9 g/dL (3.5-5.7); Albumin/Globulin Ratio 0.7 (1.1-2.2); Bilirubin,Total 0.3 mg/dL (0.3-1.0); Calcium 7.9 mg/dL (8.6-10.3); Globulin 2.7 g/dL (2.4-3.5); Potassium 5.3 mEq/L (3.5-5.1); Total Protein 4.6 g/dL (6.4-8.9)
--- NOTE | 2017-04-29 07:55 | Internal Med Progress Note ---
Date of Encounter: 04/29/17 Time of Encounter: 07:53 - Assessment and plan (1) Congestive heart failure Current Visit: Yes Status: Acute Assessment and plan: Diastolic ECHO note, normal EF, no valvular abnormalities, mild LVDD Renal function is worsening, continue to hold Lasix for His Worsening. Has been given gentle hydration by renal and kidney function worsened. Since he is aware I am to continue to hold Lasix for now. We will await nephrology's evaluation. monitor resp status Qualifiers: Congestive heart failure type: unspecified Congestive heart failure chronicity: acute Qualified Code(s): I50.9 - Heart failure, unspecified (2) Acute urinary retention Current Visit: Yes Status: Acute Assessment and plan: Rogers catheter has been placed. Having good urine output now. Kidney function is worsening. Nephrology is following. We will continue to follow. Patient will most likely be discharged with Rogers catheter in place and will follow up outpatient with urology. Continue Flomax. (3) CAP (community acquired pneumonia) Current Visit: Yes Status: Acute Assessment and plan: Continue levaquin q48h Cultures negative so far Admiting CXR was suggestive of CHF and not pneumonia Qualifiers: Laterality: left Lung location: lower lobe of lung Qualified Code(s): J18.1 - Lobar pneumonia, unspecified organism (4) DM (diabetes mellitus) Current Visit: Yes Status: Chronic Assessment and plan: Well-controlled. Continue current insulin regimen Qualifiers: Diabetes mellitus type: type 2 Diabetes mellitus complication status: without complication Diabetes mellitus correction insulin use: without correction use Qualified Code(s): E11.9 - Type 2 diabetes mellitus without complications (5) CAD (coronary artery disease) Current Visit: Yes Status: Chronic Assessment and plan: Chronic, no chest pain, continue current meds Qualifiers: Coronary Disease-Associated Artery/Lesion type: [place] artery [place] vs. transplanted heart: [place] heart Associated angina: without angina Qualified Code(s): I25.10 - Atherosclerotic heart disease of [place] coronary artery without angina pectoris (6) HTN (hypertension) Current Visit: Yes Status: Chronic Assessment and plan: Controlled, continue current meds Qualifiers: Hypertension type: essential hypertension Qualified Code(s): I10 - Essential (primary) hypertension (7) HLD (hyperlipidemia) Current Visit: Yes Status: Chronic Assessment and plan: Continue Lipitor Qualifiers: Hyperlipidemia type: mixed hyperlipidemia Qualified Code(s): E78.2 - Mixed hyperlipidemia (8) Hyperkalemia Current Visit: Yes Status: Acute Assessment and plan: Refused Kayexalate ordered today. Potassium still elevated. Will give dextrose and insulin this morning. Repeat labs in the morning. His potassium is not critical. (9) DVT prophylaxis Current Visit: Yes Status: Acute Assessment and plan: Continue subcutaneous heparin - Subjective Interval history: No acute events. The patient is afebrile. He continues to have adequate urine output. His kidney function is worsening. He has been on room air. - Constitutional Vitals: Temp Pulse Resp BP Pulse Ox 97.7 F 85 19 145/81 99 04/29/17 07:07 04/29/17 07:07 04/29/17 07:07 04/29/17 07:07 04/29/17 07:07 General appearance: Present: cooperative, A&O X 2, answers questions appropriately Exam: GEN: NAD CVS: RRR. S1, S2, No m/r/g RESP: Rhonchi with some crackles at the bases. ABD: Soft, NT, ND, +BS EXT: No edema. 2+ DP. No rashes NEURO: Nonfocal Internal Medicine: Result - Labs CBC & Chem 7: 04/29/17 05:33 04/29/17 05:33 Labs: Short CBC 04/29/17 Range/Units 05:33 WBC 14.6 H (4.3-11.1) K/mcL Hgb 10.8 L (12.9-16.9) g/dL Hct 31.4 L (37.5-50.1) % Plt Count 276 (140-400) K/mcL Neutrophils # 12.4 H (1.6-8.9) K/mcL BMP 04/28/17 04/29/17 18:43 05:33 Sodium 137 Potassium 5.3 H 5.3 H Chloride 108 H Carbon Dioxide 20 L BUN 128 H Creatinine 4.80 H Glucose 171 H Calcium 7.9 L Liver Function 04/29/17 Range/Units 05:33 Total Bilirubin 0.3 (0.3-1.0) mg/dL AST 19 (13-39) Units/L ALT 18 (7-52) Units/L Alkaline Phosphatase 127 H (34-104) Units/L Albumin 1.9 L (3.5-5.7) g/dL - ABG Interpretation ABG results: ABG ABG pH 7.28 pH Units (7.32-7.45) L 04/26/17 20:47 ABG pCO2 49 mmHg (35-45) H 04/26/17 20:47 ABG pO2 94 mmHg (85-104) 04/26/17 20:47 ABG O2 Saturation 96 % (95-98) 04/26/17 20:47 - Impressions Impressions Chest X-Ray 04/28/17 12:10 IMPRESSION: Mild interstitial prominence similar in appearance to the prior exam which could reflect mild edema. There is more linear opacity in the right mid lung likely atelectasis. D/ / 04/28/2017 13:22:48 Scarlett Sil[facility] MD / [facility] Interpreting Provider: Scarlett Silveira MD Consult Discharge Plan - Plan Referrals: Marcelina Moseley MD [Primary Care Provider] - 05/04/17 2:45 pm (Please follow up a sschedule)
[2017-04-29] MEDS ORDERED: *HR* Dextrose 50 % in Water (Syg) 50 ML SYRINGE IVP ONE (07:59)
[2017-04-29] MEDS ORDERED: Insulin Human Regular 10 UNIT in 0.9 % Sodium Chloride 10 ML IV ONE (07:59)
--- NOTE | 2017-04-29 07:59 | Nephrology Progress Note ---
Date of Encounter: 04/29/17 Time of Encounter: 07:57 - Assessment and Plan (1) Acute kidney failure, unspecified Current Visit: Yes Status: Suspected Patient has a clinical picture of acute kidney injury in the setting of a large prostate and urinary retention. The patient's renal function continues to deteriorate despite placement of a Rogers catheter and the institution of IV fluids. I am going to review his urine sediment exam. He may end up requiring a renal biopsy for definitive diagnosis. Therefore, place his aspirin on hold in case she requires a biopsy. Qualifiers: Qualified Code(s): N17.0 - Acute kidney failure with tubular necrosis (2) Acute urinary retention Current Visit: Yes Status: Acute (3) Proteinuria, unspecified Current Visit: Yes Status: Acute Qualifiers: Qualified Code(s): R80.9 - Proteinuria, unspecified (4) CAD (coronary artery disease), [place] coronary artery Current Visit: Yes Status: Chronic Qualifiers: Qualified Code(s): I25.10 - Atherosclerotic heart disease of [place] coronary artery without angina pectoris Subjective Interval history: The patient has been experiencing some nausea without vomiting. The patient's renal function continues to worsen despite starting IV fluids yesterday. Vital signs are stable. Objective - Vital Signs Vital signs: Vital Signs Temp Pulse Resp BP Pulse Ox 04/29/17 07:07 97.7 F 85 19 145/81 99 04/29/17 04:00 97.6 F 94 20 167/106 96 04/29/17 00:12 97.6 F 89 16 163/84 95 04/28/17 20:33 98.1 F 89 18 161/76 94 04/28/17 15:54 98.9 F 92 18 164/74 94 04/28/17 10:31 97.8 F 89 18 147/77 94 04/28/17 10:08 18 94 Intake and Output 04/28/17 04/28/17 04/29/17 15:59 23:59 07:59 Intake Total 120 / 120 360 / 360 Output Total 1000 / 1000 140 / 140 200 / 200 Balance -880 / -880 220 / 220 -200 / -200 Intake: Oral 120 / 120 360 / 360 Output: Urine 140 / 140 Catheter 1000 / 1000 200 / 200 Other: Meal Lunch Dinner Percent of Meal Consumed 30% 0% Stool Color Brown Weight 77.25 kg Blood Glucose* 210 173 174 Patient Weight 04/29/17 23:59 Weight 77.25 kg - General Appearance Exam: Patient is alert and oriented. He is in no acute distress. Lung sounds otherwise clear. Heart regular rate and rhythm. Abdomen is benign. There is no peripheral edema. A Rogers catheter is in place. - Lab 04/29/17 05:33 04/29/17 05:33 Most recent lab results ABG pH 7.28 pH Units (7.32-7.45) L 04/26/17 20:47 ABG pCO2 49 mmHg (35-45) H 04/26/17 20:47 ABG pO2 94 mmHg (85-104) 04/26/17 20:47 ABG HCO3 23 mEq/L (21-27) 04/26/17 20:47 ABG O2 Saturation 96 % (95-98) 04/26/17 20:47 Calcium 7.9 mg/dL (8.6-10.3) L 04/29/17 05:33 Urine Creatinine 150 mg/dL 04/27/17 13:17 Urine Total Protein 473 mg/dL 04/27/17 13:17 Consult Discharge Plan - Plan Referrals: Marcelina Moseley MD [Primary Care Provider] - 05/04/17 2:45 pm (Please follow up a sschedule)
[2017-04-29 08:35] LABS: Albumin 1.9 g/dL (3.5-5.7); Albumin/Globulin Ratio 0.7 (1.1-2.2); Bilirubin,Total 0.3 mg/dL (0.3-1.0); Globulin 2.7 g/dL (2.4-3.5); Potassium 5.4 mEq/L (3.5-5.1); Total Protein 4.6 g/dL (6.4-8.9)
[2017-04-29] MEDS: Insulin LISPRO 300 UNITS/3 ML VIAL SQ SCH ×3 (09:56→17:04)
[2017-04-29] MEDS: Isosorbide MONOnitrate (24 HR) 60 MG TAB.ER.24H PO SCH (09:56)
[2017-04-29] MEDS: Finasteride 5 MG TABLET PO SCH (09:56)
[2017-04-29] MEDS: Loratadine 10 MG TABLET PO SCH (09:56)
[2017-04-29] MEDS: Budesonide/Formoterol 80/4.5 MDI IH SCH ×2 (10:41→19:59)
[2017-04-29] MEDS: Fluticasone Propionate Nasal 50 MCG/SPRAY BOTTLE NS SCH (10:44)
[2017-04-29 11:18] LABS: Total Volume 24 Hour,Urine 0.67 Liters (0.80-1.80)
[2017-04-29 11:49] LABS: INR 1.2; Prothrombin Time 12.6 Seconds (9.4-12.1)
[2017-04-29] MEDS ORDERED: *HR* FentaNYL (PF) 100 MCG/2 ML VIAL IVP ONE (12:57)
[2017-04-29] MEDS ORDERED: 0.9 % Sodium Chloride 500 ML ONE (13:01)
[2017-04-29] MEDS ORDERED: *HR* FentaNYL (PF) 100 MCG/2 ML VIAL ONE (13:07)
[2017-04-29 15:59] VITALS: BP 144/73
[2017-04-30 08:23] LABS: Complement Component 3 108 mg/dL (88-201); Complement Component 4 8 mg/dL (10-40)
[2017-04-30 08:31] LABS: Mycoplasma pneumoniae IgG 0.24 U/L (<=0.09)
[2017-04-30 16:11] LABS: Alpha 2 Globulin (PEP) 1.06 g/dL (0.48-1.05); Beta Globulin (PEP) 0.54 g/dL (0.48-1.10)
--- NOTE | 2017-04-30 17:50 | Discharge Summary ---
Date of Encounter: 04/29/17 Time of Encounter: 18:45 - Discharge Diagnosis (1) Congestive heart failure Priority: Primary Status: Acute Qualifiers: Congestive heart failure type: unspecified Congestive heart failure chronicity: acute Qualified Code(s): I50.9 - Heart failure, unspecified (2) Acute urinary retention Priority: Primary Status: Acute (3) CAP (community acquired pneumonia) Priority: Primary Status: Acute Qualifiers: Laterality: left Lung location: lower lobe of lung Qualified Code(s): J18.1 - Lobar pneumonia, unspecified organism (4) DM (diabetes mellitus) Priority: Secondary Status: Chronic Qualifiers: Diabetes mellitus type: type 2 Diabetes mellitus complication status: without complication Diabetes mellitus moth exterminator insulin use: without fci use Qualified Code(s): E11.9 - Type 2 diabetes mellitus without complications (5) CAD (coronary artery disease) Priority: Secondary Status: Chronic Qualifiers: Coronary Disease-Associated Artery/Lesion type: [place] artery [place] vs. transplanted heart: [place] heart Associated angina: without angina Qualified Code(s): I25.10 - Atherosclerotic heart disease of [place] coronary artery without angina pectoris (6) HTN (hypertension) Priority: Secondary Status: Chronic Qualifiers: Hypertension type: essential hypertension Qualified Code(s): I10 - Essential (primary) hypertension (7) HLD (hyperlipidemia) Priority: Secondary Status: Chronic Qualifiers: Hyperlipidemia type: mixed hyperlipidemia Qualified Code(s): E78.2 - Mixed hyperlipidemia (8) Hyperkalemia Priority: Primary Status: Acute - Discharge Medications Home Medications: Albuterol Sulfate [Proair Hfa] 2 puff IH Q4H PRN 11/29/16 [History] Aspirin [Lo-Dose Aspirin EC] 81 mg PO DAILY 11/29/16 [History] Carvedilol [Coreg] 6.25 mg PO BIDWM 11/29/16 [History] Fluticasone Propionate Nasal [Flonase] 50 mcg NS DAILY 11/29/16 [History] Isosorbide MONOnitrate (24 HR) [Imdur] 60 mg PO DAILY 11/29/16 [History] Lisinopril 2.5 mg PO DAILY 11/29/16 [History] Loratadine [Allergy Relief] 10 mg PO DAILY 11/29/16 [History] Mometasone/Formoterol [Dulera 100 Mcg/5 Mcg Inhaler] 2 puff IH BID 11/29/16 [ History] Nitroglycerin [Nitrostat] 0.4 mg SL Q5M PRN 11/29/16 [History] Omeprazole [PriLOSEC] 40 mg PO BID PRN 11/29/16 [History] OxyCODONE/APAP 10/325 [Percocet 10/325 MG] 1 each PO Q6HR PRN 11/29/16 [History] Tamsulosin [Flomax] 0.4 mg PO DAILY 11/29/16 [History] Tizanidine HCl [Zanaflex] 4 mg PO BID PRN 11/29/16 [History] Atorvastatin Calcium [Lipitor] 80 mg PO HS 04/26/17 [History] Finasteride [Proscar] 5 mg PO DAILY 04/26/17 [History] Gabapentin [Neurontin] 800 mg PO TID PRN 04/26/17 [History] Multivitamin [One Daily Essential] 1 each PO DAILY 04/26/17 [History] Sertraline [Zoloft] 100 mg PO DAILY 04/26/17 [History] glipiZIDE [Glipizide] 10 mg PO DAILY 04/26/17 [History] metFORMIN [Glucophage] 500 mg PO DAILY 04/26/17 [History] Allergies/Adverse Reactions: 3 Allergy/AdvReac Type Severity Reaction Status Date / Time ticagrelor [From Brilinta] Allergy See Verified 04/26/17 17:41 Comments Procedures/tests Complete & Pending: Procedures Performed prior 72 hours Category Date Time Status CT biopsy renal LT [CT] Routine Cat Scan 04/29/17 Completed Date of admission: 04/26/17 18:58 Primary care physician: Marcelina Moseley Consults: 04/26/17 20:32 Consult to Urology [CONS] Routine Consulting Provider: [facility] [place] Reason for Consult: advanced BPH. Sees Dr. Colmenares; Dr. Darrian hatfield barr d/t acute urinary retention Time Notified: 20:32 Call Completed: No 04/29/17 09:24 Consult to Interventional Radiology [CONS] Routine Consulting Provider: Radiology Interventional [place] Reason for Consult: Kidney Biopsy Call Completed: No - Patient Status Disposition: Left Against Medical Advice Condition: Undetermined Overall status at discharge: patient is not back to baseline - Discharge Instructions Follow Up With: Marcelina Moseley MD [Primary Care Provider] - 05/04/17 2:45 pm (Please follow up a sschedule) Hospital course: Mr. Tolentino is a 57 year old male with a PMH of CHF, DM, GERD, HTN, CAD x4 stents , HLD, and advanced BPH. He presented to [facility] after signing out from [facility] AMA. Please note the patient ended up signing AMA at our facility becasue we would not let him smoke. We offered him a nicotine patch and he insisted on leaving. His reported that he was being treated in [facility] for CHF and Pna at [facility]. He began having urinary difficulty and after [address] a barr catheter there and he signed out AMA. Upon arrival to [facility] today he continued to be dyspneic and was somnolent. When I evaluated the patient when I came on service on 04/29/2017, he was completely alert and oriented. He has been receiving treatment for CHF exacerbation based on chest x-ray findings. He also had acute kidney failure with a creatinine significantly above baseline. He had nephrology see the patient with us and they suspected some of the symptoms were due to acute urinary retention. Barr was able to be placed. His kidney function remained abnormal. On day that he left AMA his creatinine was still 4.81 with a baseline back in October 2016 being normal. He underwent a kidney biopsy on 04/29/2017. Nephrology recommendations.. The patient of note was also being treated for pneumonia, although there was no such convincing findings on chest x-ray. On 04/29 he requested that he smokes. This was against the hospital's policy. We offered him a nicotine patch which she refused. He continuously asked to leave and he was explained that it be leaving against medical advise. He ended up leaving AGAINST MEDICAL ADVICE on . The patient has not finished treatment appropriately as I believe the patient could have benefit from at least 2 or 3 more days of hospital stay. While hospitalized the patient underwent an echocardiogram with the following results LVEF 45-50%. Mild left ventricular diastolic dysfunction. Normal right ventricular structure and function. Mild-moderate mitral regurgitation. He also underwent renal ultrasound with the following impressions: Bilateral renal cysts. Otherwise unremarkable bilateral renal ultrasound. Incomplete evaluation of the urinary bladder due to lack of distention with Barr in place. Moderate prostatomegaly. Small amount of ascites. - Time Spent with Patient Total time spent providing and/or coordinating discharge services: Less than 30 minutes - Constitutional Vitals: Temp Pulse Resp BP Pulse Ox 97.7 F 84 18 144/73 94 04/29/17 15:58 04/29/17 15:58 04/29/17 15:58 04/29/17 15:58 04/29/17 15:58 General appearance: Present: cooperative, A&O X 2, answers questions appropriately
[2017-05-01 08:04] LABS: IFE Reflexed IFE Done; Immunoglobulin A 172 mg/dL (68-408); Immunoglobulin G 249 mg/dL (768-1632); Immunoglobulin M 248 mg/dL (35-263)
[2017-05-04 14:40] LABS: Myeloperoxidase Ab 1 AU/mL (0-19); Serine Protease-3 Antibody 0 AU/mL (0-19)
== END 2017-04-29 19:10 | disposition left against medical advice (07) | DRG 291 ==
LOC: 2ANU 13:14 → EMEROO 13:14 → 2ANU 17:38 → SUATTDRO 18:58
PROVIDERS: ADMIT Internal Medicine; ATTEND Internal Medicine